=== PATIENT | male | born 1970 | race African-American/Black ===

== ENCOUNTER 2020-05-30 17:45 | Inpatient (IN) | payer BC ==
[~2020-05-30] VITALS: Ht 182.9 cm; Wt 104.9 kg
[2020-05-30 17:54] VITALS: BP 122/80
[2020-05-30 18:52] LABS: BASO % 0.3 % (0.0-1.0); EOS # 0.2 10*3/uL (0.0-0.4); EOS % 2.9 % (1.0-4.0); HEMATOCRIT 36.4 % (42.0-52.0); LYMPH # 1.8 10*3/uL (1.3-4.4); LYMPH % 27.3 % (27.0-41.0); MEAN CELL VOLUME 88.3 fl (80.0-94.0); MEAN CORPUSCULAR HGB 28.9 pg (27.0-31.0); MEAN CORPUSCULAR HGB CONC 32.7 g/dl (33.0-37.0); MEAN PLATELET VOLUME 9.3 fl (9.6-12.3); MONO # 0.5 10*3/uL (0.1-1.0); MONO % 7.5 % (3.0-9.0); NEUT % 61.7 % (47.0-73.0); PLATELET COUNT AUTOMATED 274 10*3/uL (130-400); RED BLOOD COUNT 4.12 10*6/uL (4.50-5.90); RED CELL DISTRI WIDTH 12.3 % (0-14.5); WHITE BLOOD COUNT 6.5 10*3/uL (4.8-10.8)
[2020-05-30 19:02] LABS: ACT PARTIAL THROMBO TIME 25.5 SECONDS (20.0-32.1); INTERNATIONAL NORM RATIO 0.9 (2.0-3.5)
[2020-05-30 19:07] LABS: ALBUMIN 3.7 gm/dl (3.1-4.5); ALKALINE PHOSPHATASE 52 U/L (45-117); BUN 14 mg/dl (7-24); CHLORIDE 107 mmol/L (98-107); CREATININE 0.89 mg/dL (0.70-1.30); LIPASE 139 U/L (73-393); POTASSIUM 3.5 mmol/L (3.5-5.1); SGOT/AST 58 IU/L (3-35); SGPT/ALT 70 U/L (12-78); SODIUM 139 mmol/L (136-145); TOTAL PROTEIN 7.2 gm/dL (6.4-8.2); TROPONIN I 0.029 ng/ml (<0.045)
[2020-05-30 21:55] VITALS: BP 117/69
--- NOTE | 2020-05-30 21:55 | NUR ---
Time: 2154 A 49 year old M admitted to 5E under services of WALLACE LUCIANO DO. Pt. arrived via stretcher from ER. Chief complaint: RECTAL BLEEDING & ABDOMINAL PAIN. GAGANDEEP ROBERTS
[2020-05-30 22:00] VITALS: BP 117/69
--- NOTE | 2020-05-30 22:33 | NUR ---
CALLED DR. EVANS PERTAINING TO PATIENT NOT TAKING ANY HOME MEDICATIONS. DR. GAVIN ALREADY NOTIFIED OF PT. BEING ADMITTED. NO FURTHER IV FLUIDS AFTER PRESENT BAG.
--- NOTE | 2020-05-30 22:53 | NUR ---
PT. HAD A BM; NO BLOOD NOTED.
[2020-05-31] VITALS: BP 126/75
--- NOTE | 2020-05-31 02:00 | NUR ---
RESTING IN BED WITH EYES CLOSED. CALL LIGHT WITHIN REACH.
--- NOTE | 2020-05-31 04:00 | NUR ---
RESTING IN BED WITH EYES CLOSED; IV FLUIDS INFUSING WITHOUT DIFFICULTY; SITE ASYMPTOMATIC. CALL LIGHT WITHIN REACH. PT. STILL HAS NOT VOIDED.
[2020-05-31 06:19] LABS: BASO % 0.5 % (0.0-1.0); EOS # 0.2 10*3/uL (0.0-0.4); EOS % 4.1 % (1.0-4.0); HEMATOCRIT 37.5 % (42.0-52.0); LYMPH # 1.4 10*3/uL (1.3-4.4); LYMPH % 31.9 % (27.0-41.0); MEAN CELL VOLUME 89.5 fl (80.0-94.0); MEAN CORPUSCULAR HGB 28.4 pg (27.0-31.0); MEAN CORPUSCULAR HGB CONC 31.7 g/dl (33.0-37.0); MEAN PLATELET VOLUME 9.3 fl (9.6-12.3); MONO # 0.5 10*3/uL (0.1-1.0); MONO % 10.7 % (3.0-9.0); NEUT # 2.3 10*3/uL (2.3-7.9); NEUT % 52.6 % (47.0-73.0); PLATELET COUNT AUTOMATED 256 10*3/uL (130-400); RED BLOOD COUNT 4.19 10*6/uL (4.50-5.90); RED CELL DISTRI WIDTH 12.5 % (0-14.5); WHITE BLOOD COUNT 4.4 10*3/uL (4.8-10.8)
[2020-05-31 06:42] LABS: ALBUMIN 3.2 gm/dl (3.1-4.5); CHLORIDE 108 mmol/L (98-107); POTASSIUM 3.5 mmol/L (3.5-5.1); SGOT/AST 41 IU/L (3-35); SGPT/ALT 57 U/L (12-78); SODIUM 140 mmol/L (136-145)
[2020-05-31 06:57] LABS: ALKALINE PHOSPHATASE 47 U/L (45-117); BUN 11 mg/dl (7-24); CHOLESTEROL 115 mg/dL (<200); CREATININE 0.77 mg/dL (0.70-1.30); HDL CHOLESTEROL 50 mg/dl (40-60); LDL CHOLESTEROL 56 mg/dL (9-159); TOTAL PROTEIN 6.5 gm/dL (6.4-8.2); TRIGLYCERIDES 46 mg/dl (<150); VLDL CHOLESTEROL 9 mg/dL (6-40)
[2020-05-31 08:00] VITALS: BP 130/84
--- NOTE | 2020-05-31 08:30 | NUR ---
Patient resting quietly with no c/o discomfort. Respirations easy and regular. Vital signs stable. No overt distress. JOSE GAN R
[2020-05-31 12:00] VITALS: BP 132/80
--- NOTE | 2020-05-31 13:48 | NUR ---
Engineering Writer in to talk to patient. Patient states lives at home with . There are no steps in the home. Physician: none at present [facility]acy: [facility] Home health services: none Patient's level of ADLs: INDEPENDENT Patient has working utilities: all working DME: none Follow-up physician's appointment after d/c: will be made by hospitalist nurse director upon discharge with doctor of patient's choice Does patient want to access PORTAL?: no Discharge plan discussed with patient, he states he lives at home, is independent in adls and ambulation, he states he will reutrn home when discharge and dneies any home needs, case management will follow. SUZIE JAIMES
[2020-05-31 14:25] LABS: BILIRUBIN NEGATIVE (NEGATIVE); BLOOD NEGATIVE (NEGATIVE); CLARITY SL CLOUDY (CLEAR); COLOR YELLOW (YELLOW); GLUCOSE NEGATIVE (NEGATIVE); KETONE NEGATIVE (NEGATIVE); LEUKO ESTERASE NEGATIVE (NEGATIVE); NITRITE NEGATIVE (NEGATIVE); UROBILINOGEN 0.2 E.U./dl (0.2-1.0)
[2020-05-31 14:31] LABS: BACTERIA TRACE; CALCIUM OXALATE CRYSTALS 1+; EPITHELIAL CELLS 0-2; MUCOUS 1+
[2020-05-31 14:33] LABS: URINE AMPHETAMINES > 1000 (1000ng/ml); URINE BARBITURATES < 200 (200ng/ml); URINE BENZODIAZEPINES < 200 (200ng/ml); URINE CANNABINOIDS (THC) < 50 (50ng/ml); URINE COCAINE > 300 (300ng/ml); URINE METHADONE < 300 (300ng/ml); URINE OPIATES < 300 (300ng/ml)
[2020-05-31 14:35] LABS: URINE PHENCYCLIDINE < 25 (25ng/ml)
[2020-05-31 16:00] VITALS: BP 102/80
--- NOTE | 2020-05-31 16:30 | NUR ---
Patient resting quietly with no c/o discomfort. Respirations easy and regular. Vital signs stable. No overt distress. JOSE GAN R
[2020-05-31 20:00] VITALS: BP 132/70
--- NOTE | 2020-05-31 20:30 | NUR ---
24 HR chart check completed.
--- NOTE | 2020-05-31 21:00 | NUR ---
SLEEPING. RESPIRATIONS EASY. LUNGS DIMINISHED, CLEAR. PULSE OX 99% RA. DENIES ACTIVE GI BLEED. CALL LIGHT WITHIN REACH. NO VOICED COMPLAINTS. NPO AFTER MIDNIGHT DISCUSSED FOR TESTING IN AM.
[2020-06-01] VITALS (9 sets, daily range): BP systolic 102–128; BP diastolic 62–82
--- NOTE | 2020-06-01 | NUR ---
CONTINUES TO SLEEP WITH NO ACUTE DISTRESS NOTED. RESPIRATIONS EASY. CALL LIGHT WITHIN REACH
--- NOTE | 2020-06-01 06:00 | NUR ---
SLEPT THROUGHOUT NIGHT WITH NO DISTRESS NOTED. RESPIRATIONS EASY. REMAINS NPO FOR TESTING THIS AM. CALL LIGHT WITHIN REACH. NO VOICED COMPLAINTS
[2020-06-01 07:01] LABS: BASO % 0.2 % (0.0-1.0); EOS # 0.2 10*3/uL (0.0-0.4); EOS % 3.6 % (1.0-4.0); HEMATOCRIT 37.8 % (42.0-52.0); LYMPH # 1.4 10*3/uL (1.3-4.4); LYMPH % 33.6 % (27.0-41.0); MEAN CELL VOLUME 88.3 fl (80.0-94.0); MEAN CORPUSCULAR HGB 28.7 pg (27.0-31.0); MEAN CORPUSCULAR HGB CONC 32.5 g/dl (33.0-37.0); MEAN PLATELET VOLUME 8.9 fl (9.6-12.3); MONO # 0.4 10*3/uL (0.1-1.0); MONO % 8.7 % (3.0-9.0); NEUT # 2.2 10*3/uL (2.3-7.9); NEUT % 53.9 % (47.0-73.0); PLATELET COUNT AUTOMATED 282 10*3/uL (130-400); RED BLOOD COUNT 4.28 10*6/uL (4.50-5.90); RED CELL DISTRI WIDTH 12.3 % (0-14.5); WHITE BLOOD COUNT 4.1 10*3/uL (4.8-10.8)
[2020-06-01 07:26] LABS: CHLORIDE 109 mmol/L (98-107); POTASSIUM 3.6 mmol/L (3.5-5.1); SODIUM 137 mmol/L (136-145)
[2020-06-01 07:36] LABS: ALBUMIN 3.3 gm/dl (3.1-4.5); ALKALINE PHOSPHATASE 51 U/L (45-117); BUN 7 mg/dl (7-24); CREATININE 0.94 mg/dL (0.70-1.30); SGOT/AST 27 IU/L (3-35); SGPT/ALT 53 U/L (12-78); TOTAL PROTEIN 6.7 gm/dL (6.4-8.2)
--- NOTE | 2020-06-01 09:00 | NUR ---
case management visits with patient, he will return home when discharged and denies any home needs
--- NOTE | 2020-06-01 19:41 | NUR ---
24 HR chart check completed.
--- NOTE | 2020-06-01 21:00 | NUR ---
RESTING IN BED WITH NO ACUTE DISTRESS NOTED. RESPIRATIONS EASY. LUNGS DIMINISHED, CLEAR. PULSE OX 97% RA. CALL LIGHT WITHIN REACH. NO VOICED COMPLAINTS
[2020-06-02] VITALS: BP 103/63
--- NOTE | 2020-06-02 | NUR ---
SLEEPING. NO DISTRESS NOTED. RESPIRATIONS EASY. CALL LIGHT WITHIN REACH.
--- NOTE | 2020-06-02 06:00 | NUR ---
SLEPT THROUGHOUT NIGHT WITH NO DISTRESS NOTED. RESPIRATIONS EASY. CALL LIGHT WITHIN REACH. NO VOICED COMPLAINTS THIS SHIFT
[2020-06-02 08:00] VITALS: BP 126/78
--- NOTE | 2020-06-02 09:00 | NUR ---
case management visits with patient, he will return home when discharged and denies any home needs, case management will follow
[2020-06-02] MEDS ORDERED: CARAFATE1 G1 PO (13:10)
--- NOTE | 2020-06-02 13:10 | NUR ---
Discharge instructions reviewed with patient. Patient receptive and verbalizes understanding. Follow-up care arranged. Written instructions given to patient. CHARLOTTE SANDERSON
--- NOTE | 2020-06-02 13:32 | NUR ---
Discharged via ambulatory. Declined wheelchair. DC with belongings.
== END 2020-06-02 13:32 | disposition home or self-care (01) | DRG 378 ==
LOC: ED 17:45 → EDHOLD 20:30 → 5E 20:30 → EDHOLD 20:30 → 5E 21:51
PROVIDERS: Hospitalist; Nurse Practitioner Family; Student in an Organized Health Care Education/Training Program; ADMIT Internal Medicine
PROC: 0DB68ZX Excision of Stomach, Via Natural or Artificial Opening Endoscopic, Diagnostic (ICD-10-PCS; principal; 2020-06-01)
DX: K29.01 Acute gastritis with bleeding (principal); D62 Acute posthemorrhagic anemia; F14.10 Cocaine abuse, uncomplicated; F12.10 Cannabis abuse, uncomplicated; K59.00 Constipation, unspecified; R00.0 Tachycardia, unspecified; Z79.899 Other long term (current) drug therapy